=== PATIENT | female | born 1935 | race Caucasian/White ===

== ENCOUNTER 2019-10-18 19:19 | Emergency (ER) | payer MEDICARE, MEDICAID ==
--- NOTE | 2019-10-18 20:02 | EDM.PDOC ---
ED HPI GENERAL MEDICAL PROBLEM - General Chief Complaint: Genitourinary Problem Stated Complaint: UTI Time Seen by Provider: 10/18/19 19:45 Source of Information: Reports: Patient, Family History Limitations: Reports: Other (Patient has some dementia and confusion) - History of Present Illness INITIAL COMMENTS - FREE TEXT/NARRATIVE: 84-year-old female with dementia, is having a bad day today because she is "off ", more confused than usual and her family think she is going to the bathroom more often. The patient herself denies any symptoms. She has no fevers or chills, pain, nausea or vomiting or recent trauma. They mainly just want her checked for a UTI. 2 weeks ago she started paroxetine for depression. Onset: Unknown/Unsure (Symptoms for at least the last 24 hours) Associated Symptoms: Reports: Confusion. Denies: Chest Pain, Fever/Chills, Loss of Appetite, Nausea/Vomiting, Shortness of Breath - Related Data Allergies Allergy/AdvReac Type Severity Reaction Status Date / Time lisinopril Allergy Cannot Verified 03/29/14 13:42 Remember Penicillins Allergy Cannot Verified 03/29/14 13:42 Remember Home Meds: Home Meds Losartan [Cozaar] 100 mg PO DAILY 03/29/14 [History] Famotidine 20 mg PO DAILY 10/18/19 [History] Multivitamin [Multiple Vitamins] 1 each PO DAILY 10/18/19 [History] PARoxetine [Paxil] 20 mg PO DAILY 10/18/19 [History] buPROPion [buPROPion XL] 150 mg PO BEDTIME 10/18/19 [History] Past Medical History HEENT History: Reports: Impaired Vision Cardiovascular History: Reports: High Cholesterol, Hypertension Respiratory History: Reports: Asthma Gastrointestinal History: Reports: GERD [employer]ER History: Reports: Musculoskeletal History: Reports: Arthritis, Fracture Other Musculoskeletal History: broken collar bone Psychiatric History: Reports: Dementia Oncologic (Cancer) History: Reports: Brain Other Oncologic History: benign brain tumor - Infectious Disease History Infectious Disease History: Reports: Chicken Pox, Measles, Mumps - Past Surgical History Female Surgical History: Reports: Hysterectomy Musculoskeletal Surgical History: Reports: Arthroscopic Knee Social & Family History - Family History Family Medical History: Noncontributory - Tobacco Use Smoking Status *Q: Former Smoker Used Tobacco, but Quit: Yes Month/Year Tobacco Last Used: 2005 - Caffeine Use Caffeine Use: Reports: Coffee - Recreational Drug Use Recreational Drug Use: No ED ROS GENERAL - Review of Systems Review Of Systems: See Below Constitutional: Denies: Fever, Chills Respiratory: Denies: Shortness of Breath Cardiovascular: Denies: Chest Pain GI/Abdominal: Reports: Nausea, Vomiting (Patient claims she has had some nausea and vomiting over the past several days but none currently). Denies: Abdominal Pain : Reports: Frequency. Denies: Dysuria, Urgency Skin: Reports: No Symptoms Neurological: Reports: Confusion. Denies: Headache Psychiatric: Reports: No Symptoms ED EXAM, GENERAL - Physical Exam Exam: See Below Exam Limited By: No Limitations General Appearance: Alert, No Apparent Distress Eye Exam: Bilateral Eye: EOMI, Normal Inspection (No jaundice) Head: Atraumatic Neck: Supple, Non-Tender Respiratory/Chest: Lungs Clear Cardiovascular: Regular Rate, Rhythm GI/Abdominal: Soft, Non-Tender Back Exam: No: CVA Tenderness (R), CVA Tenderness (L) Neurological: Alert, Confused (Mildly confused, according to family not much different than her baseline) Skin Exam: Warm, Dry Course - Vital Signs Last Recorded V/S: Last Vital Signs Temp 97.3 F 10/18/19 19:33 Pulse 98 10/18/19 19:33 Resp 14 10/18/19 19:33 BP 150/90 H 10/18/19 19:33 Pulse Ox 97 10/18/19 19:33 - Orders/Labs/Meds Orders: Active Orders 24 hr Category Date Time Status CULTURE URINE [RM] Stat Lab 10/18/19 20:27 Received Labs: Laboratory Tests 10/18/19 Range/Units 19:58 Urine Color Yellow (YELLOW) Urine Appearance Slightly cloudy A (CLEAR) Urine pH 5.0 (5.0-8.0) Ur Specific [place] 1.025 (1.008-1.030) Urine Protein 30 H (NEGATIVE) mg/dL Urine Glucose (UA) Negative (NEGATIVE) mg/dL Urine Ketones 15 H (NEGATIVE) mg/dL Urine Occult Blood Negative (NEGATIVE) Urine Nitrite Negative (NEGATIVE) Urine Bilirubin Small H (NEGATIVE) Urine Urobilinogen 1.0 (0.2-1.0) EU/dL Ur Leukocyte Esterase Negative (NEGATIVE) Urine RBC 0-5 (0-5) Urine WBC 0-5 (0-5) Ur Epithelial Cells Few Amorphous Sediment Not seen Urine Bacteria Many Urine Mucus Moderate - Re-Assessments/Exams Free Text/Narrative Re-Assessment/Exam: 10/18/19 20:02 UA was obtained by quick catheterization. 10/18/19 20:16 UA showed many bacteria, but not a significant inflammatory component with white cells or leukocyte on dipstick. No RBCs. A culture was initiated and the patient will be placed on Macrodantin 100 mg twice daily for at least the next 5 days. She can recheck anytime if worsening such as fever or increased symptoms. Departure - Departure Time of Disposition: 20:21 Disposition: Home, Self-Care 01 Clinical Impression: Confusion UTI (urinary tract infection) Qualifiers: Urinary tract infection type: acute cystitis Hematuria presence: without hematuria Qualified Code(s): N30.00 - Acute cystitis without hematuria - Discharge Information Instructions: Urinary Tract Infection, Adult, [id number] Referrals: Linnea Fajardo PA [Primary Care Provider] - Forms: ED Department Discharge Care Plan Goals: Continue your current medications, and take Macrodantin twice daily for at least 5 days. We will inform you of culture results if changes are needed. Consider rechecking in 3 to 4 days if not improving satisfactorily, or return sooner if worsening such as fever, pain, or increased confusion. - My Orders Last 24 Hours: My Active Orders 10/18/19 20:27 CULTURE URINE [RM] Stat - Assessment/Plan Last 24 Hours: My Active Orders 10/18/19 20:27 CULTURE URINE [RM] Stat
== END 2019-10-18 20:25 | disposition home or self-care (01) ==
LOC: JP.ED 19:19
DX: R41.0 Disorientation, unspecified (principal); N39.0 Urinary tract infection, site not specified; I10 Essential (primary) hypertension; J45.909 Unspecified asthma, uncomplicated; Z88.0 Allergy status to penicillin; Z88.8 Allergy status to other drugs, medicaments and biological substances; Z87.891 Personal history of nicotine dependence
CPT/HCPCS: 81001; 87086; 99283

== ENCOUNTER 2020-01-11 03:17 | Emergency (ER) | payer MEDICARE, MEDICAID ==
--- NOTE | 2020-01-11 03:53 | EDM.PDOC ---
ED HPI GENERAL MEDICAL PROBLEM - General Chief Complaint: Genitourinary Problem Stated Complaint: UTI Time Seen by Provider: 01/11/20 03:39 Source of Information: Reports: Family History Limitations: Reports: No Limitations - History of Present Illness INITIAL COMMENTS - FREE TEXT/NARRATIVE: Patient brought by son who found her pacing in the house tonight and calling out the name of a relative. When she was last like this, she had a UTI. Son was concerned the same thing is happening again. Onset: Today Duration: Hour(s): (2) Quality: Reports: Ache Severity: Mild Improves with: Reports: None Worsens with: Reports: None Associated Symptoms: Reports: Confusion - Related Data Allergies Allergy/AdvReac Type Severity Reaction Status Date / Time lisinopril Allergy Cannot Verified 01/11/20 03:42 Remember Penicillins Allergy Cannot Verified 01/11/20 03:42 Remember Home Meds: Home Meds Losartan [Cozaar] 100 mg PO DAILY 03/29/14 [History] Famotidine 20 mg PO DAILY 10/18/19 [History] Multivitamin [Multiple Vitamins] 1 each PO DAILY 10/18/19 [History] PARoxetine [Paxil] 20 mg PO DAILY 10/18/19 [History] buPROPion [buPROPion XL] 150 mg PO BEDTIME 10/18/19 [History] Past Medical History HEENT History: Reports: Impaired Vision Cardiovascular History: Reports: High Cholesterol, Hypertension Respiratory History: Reports: Asthma Gastrointestinal History: Reports: GERD [employer]CH[employer]ICIAN History: Reports: Musculoskeletal History: Reports: Arthritis, Fracture Other Musculoskeletal History: broken collar bone Psychiatric History: Reports: Dementia Oncologic (Cancer) History: Reports: Brain Other Oncologic History: benign brain tumor - Infectious Disease History Infectious Disease History: Reports: Chicken Pox, Measles, Mumps - Past Surgical History Female Surgical History: Reports: Hysterectomy Musculoskeletal Surgical History: Reports: Arthroscopic Knee Social & Family History - Family History Family Medical History: Noncontributory - Caffeine Use Caffeine Use: Reports: Coffee ED ROS GENERAL - Review of Systems Review Of Systems: Unable To Obtain Reason Not Obtained: Dementia status. ED EXAM, RENAL/ - Physical Exam Exam: See Below Exam Limited By: No Limitations General Appearance: No Apparent Distress Respiratory/Chest: Lungs Clear Cardiovascular: Regular Rate, Rhythm GI/Abdominal: Soft, Non-Tender Course - Vital Signs Last Recorded V/S: Last Vital Signs Temp 37.1 C 01/11/20 03:46 Pulse 93 01/11/20 03:46 Resp 14 01/11/20 03:46 BP 147/85 H 01/11/20 03:46 Pulse Ox 96 01/11/20 03:46 - Orders/Labs/Meds Labs: Laboratory Tests 01/11/20 Range/Units 04:03 Urine Color Yellow (YELLOW) Urine Appearance Cloudy A (CLEAR) Urine pH 5.5 (5.0-8.0) Ur Specific [place] >= 1.030 (1.008-1.030) Urine Protein Trace H (NEGATIVE) mg/dL Urine Glucose (UA) Negative (NEGATIVE) mg/dL Urine Ketones Negative (NEGATIVE) mg/dL Urine Occult Blood Negative (NEGATIVE) Urine Nitrite Negative (NEGATIVE) Urine Bilirubin Negative (NEGATIVE) Urine Urobilinogen 1.0 (0.2-1.0) EU/dL Ur Leukocyte Esterase Negative (NEGATIVE) - Re-Assessments/Exams Free Text/Narrative Re-Assessment/Exam: 01/11/20 05:09 Urine testing eventually finalized which shows no evidence of infection. I think her son was witnessing increased confusion due to a sundowning effect. Patient remained in good condition and had no further questions. I reviewed my exam with him which demonstrated clear lungs even though the patient does have intermittent coughing. Departure - Departure Time of Disposition: 04:28 Disposition: Home, Self-Care 01 Condition: Good Clinical Impression: Confusion - Discharge Information *PRESCRIPTION DRUG MONITORING PROGRAM REVIEWED*: Not Applicable *COPY OF PRESCRIPTION DRUG MONITORING REPORT IN PATIENT PAZ: Not Applicable Instructions: Confusion, Dementia Caregiver Guide Referrals: PCP,None [Primary Care Provider] - Forms: ED Department Discharge Additional Instructions: Continue current medications and cares. Keep scheduled appointments. Sepsis Event Note - Focused Exam Vital Signs: Vital Signs Temp Pulse Resp BP Pulse Ox 01/11/20 03:46 37.1 C 93 14 147/85 H 96 Date Exam was Performed: 01/11/20 Time Exam was Performed: 05:07
== END 2020-01-11 04:35 | disposition home or self-care (01) ==
LOC: JP.ED 03:17
DX: R41.0 Disorientation, unspecified (principal); I10 Essential (primary) hypertension; E78.00 Pure hypercholesterolemia, unspecified; K21.9 Gastro-esophageal reflux disease without esophagitis; Z79.899 Other long term (current) drug therapy; Z88.0 Allergy status to penicillin; Z88.8 Allergy status to other drugs, medicaments and biological substances
CPT/HCPCS: 81003; 99282; 99284

== ENCOUNTER 2024-01-05 18:34 | Emergency (ER) | payer MEDICARE, MEDICAID ==
[2024-01-05 20:10] LABS: BASOPHILS PERCENT AUTO 0.3 % (0.1-1.3); EOSINOPHILS ABSOLUTE AUTO 0.17 K/uL (0.00-0.40); EOSINOPHILS PERCENT AUTO 2.9 % (0.0-5.4); HEMOGLOBIN 11.9 g/dL (11.2-15.5); IMMATURE GRAN PERCENT AUTO 0.3 % (0.0-0.7); LYMPHOCYTES ABSOLUTE AUTO 1.17 K/uL (0.8-3.3); LYMPHOCYTES PERCENT AUTO 20.3 % (11.4-47.7); MEAN CORPUSCULAR HEMOGLOBIN 30.1 pg (31.6-35.5); MEAN CORPUSCULAR VOLUME 88.6 fL (81.4-99.0); MONOCYTES PERCENT AUTO 8.7 % (3.3-12.6); NEUTROPHILS ABSOLUTE AUTO 3.89 K/uL (1.0-7.6); NEUTROPHILS PERCENT AUTO 67.5 % (40.0-78.1); PLATELET COUNT,PLT 193 K/uL (130-375); RED BLOOD CELL COUNT 3.95 M/uL (3.77-5.24); WHITE BLOOD CELL COUNT,WBC 5.8 K/uL (3.2-11.0)
[2024-01-05 20:11] LABS: BASOPHILS ABSOLUTE AUTO 0.02 K/uL (0.00-0.10); IMMATURE GRAN ABSOLUTE AUTO 0.02 K/uL (0.00-0.23)
[2024-01-05] MEDS: Sodium Chloride 0.9% 10 ML Syringe FLUSH PRN (20:27)
[2024-01-05 20:29] LABS: ALANINE AMINOTRANSFERASE,ALT 17 U/L (12-78); ALBUMIN 3.3 g/dL (3.4-5.0); ALKALINE PHOSPHATASE 65 U/L (46-116); ASPARTATE AMNIOTRANSFERASE,AST 15 U/L (15-37); BILIRUBIN TOTAL 0.5 mg/dL (0.2-1.0); BLOOD UREA NITROGEN,BUN 11 mg/dL (7-18); CALCIUM 9.1 mg/dL (8.5-10.1); CARBON DIOXIDE,CO2 28 mmol/L (21-32); CHLORIDE,CL 105 mmol/L (100-108); CREATININE 1.2 mg/dL (0.6-1.0); EST CRCL DRUG DOSING (CG) 23.72 mL/min; ESTIMATED GFR 44 mL/min (>60); GLUCOSE RANDOM 102 mg/dL (74-106); POTASSIUM,K 3.2 mmol/L (3.6-5.2); PROTEIN TOTAL,TP 6.7 g/dL (6.4-8.2); SODIUM,NA 143 mmol/L (140-148)
[2024-01-05 20:31] LABS: ANION GAP 13.2 mmol/L (5.0-14.0)
[2024-01-05 20:34] LABS: BILIRUBIN,URINE NEGATIVE (NEGATIVE); COLOR,URINE YELLOW (YELLOW); GLUCOSE,URINE NEGATIVE (NEGATIVE); KETONES,URINE NEGATIVE (NEGATIVE); LEUKOCYTE ESTERASE,URINE NEGATIVE (NEGATIVE); NITRITE,URINE NEGATIVE (NEGATIVE); OCCULT BLOOD,URINE NEGATIVE (NEGATIVE); PROTEIN,URINE NEGATIVE (NEGATIVE)
[2024-01-05 20:39] LABS: AMORPHOUS SEDIMENT,URINE NOT SEEN; APPEARANCE,URINE SLIGHTLY CLOUDY (CLEAR); BACTERIA,URINE FEW; EPITHELIAL CELLS,URINE MODERATE; MUCUS,URINE MANY; RBC,URINE 0-5 (0-5); WBC,URINE 0-5 (0-5)
[2024-01-05 20:48] LABS: CORONAVIRUS COVID-19 NAA NEGATIVE (NEGATIVE); INFLUENZA A NAA NEGATIVE (NEGATIVE); INFLUENZA B NAA NEGATIVE (NEGATIVE); RESPIRATORY SYNCYTIAL VIR NAA NEGATIVE (NEGATIVE)
[2024-01-05] MEDS: Sodium Chloride 0.9% 1,000 ML IV SCH (21:05)
[2024-01-05] MEDS: Potassium Chloride 20 MEQ Tab.ER PO ONE (21:35)
== END 2024-01-05 22:36 | disposition home or self-care (01) ==
LOC: JP.ED 18:34
DX: E86.0 Dehydration (principal); E87.6 Hypokalemia; I10 Essential (primary) hypertension; Z88.0 Allergy status to penicillin; Z88.8 Allergy status to other drugs, medicaments and biological substances; Z79.899 Other long term (current) drug therapy; Z90.710 Acquired absence of both cervix and uterus
CPT/HCPCS: 0241U; 36415; 80053; 81001; 85025; 96360; 99284; A9270; J3490; J7030

== ENCOUNTER 2024-03-29 10:38 | Emergency (ER) | payer MEDICARE, MEDICAID ==
[2024-03-29 12:32] LABS: EOSINOPHILS PERCENT AUTO 0.1 % (0.0-5.4); HEMATOCRIT 31.2 % (34.3-46.0); HEMOGLOBIN 10.5 g/dL (11.2-15.5); IMMATURE GRAN ABSOLUTE AUTO 0.04 K/uL (0.00-0.23); IMMATURE GRAN PERCENT AUTO 0.5 % (0.0-0.7); LYMPHOCYTES ABSOLUTE AUTO 0.76 K/uL (0.8-3.3); LYMPHOCYTES PERCENT AUTO 8.9 % (11.4-47.7); MEAN CORPUSCULAR HEMOGLOBIN 30.5 pg (31.6-35.5); MEAN CORPUSCULAR HGB CONC 33.7 g/dL (31.6-35.5); MEAN CORPUSCULAR VOLUME 90.7 fL (81.4-99.0); MONOCYTES ABSOLUTE AUTO 0.74 K/uL (0.20-0.90); MONOCYTES PERCENT AUTO 8.7 % (3.3-12.6); NEUTROPHILS ABSOLUTE AUTO 6.97 K/uL (1.0-7.6); NEUTROPHILS PERCENT AUTO 81.8 % (40.0-78.1); PLATELET COUNT,PLT 189 K/uL (130-375); RED BLOOD CELL COUNT 3.44 M/uL (3.77-5.24); WHITE BLOOD CELL COUNT,WBC 8.5 K/uL (3.2-11.0)
[2024-03-29 12:33] LABS: EOSINOPHILS ABSOLUTE AUTO 0.01 K/uL (0.00-0.40)
[2024-03-29] MEDS: Sodium Chloride 0.9% 1,000 ML IV SCH (12:34)
[2024-03-29 12:52] LABS: A/G RATIO 0.8 (1.2-2.2); ALANINE AMINOTRANSFERASE,ALT 22 U/L (12-78); ALBUMIN 2.8 g/dL (3.4-5.0); ALKALINE PHOSPHATASE 62 U/L (46-116); ASPARTATE AMNIOTRANSFERASE,AST 13 U/L (15-37); BILIRUBIN TOTAL 0.7 mg/dL (0.2-1.0); BLOOD UREA NITROGEN,BUN 27 mg/dL (7-18); C-REACTIVE PROTEIN 3.33 mg/dL (<0.50); CALCIUM 9.5 mg/dL (8.5-10.1); CARBON DIOXIDE,CO2 27 mmol/L (21-32); CHLORIDE,CL 108 mmol/L (100-108); CREATININE 1.1 mg/dL (0.6-1.0); EST CRCL DRUG DOSING (CG) 25.88 mL/min; ESTIMATED GFR 49 mL/min (>60); GLUCOSE RANDOM 94 mg/dL (74-106); POTASSIUM,K 3.5 mmol/L (3.6-5.2); PROTEIN TOTAL,TP 6.2 g/dL (6.4-8.2); SODIUM,NA 142 mmol/L (140-148)
[2024-03-29 12:53] LABS: ANION GAP 10.5 mmol/L (5.0-14.0)
[2024-03-29 14:19] LABS: APPEARANCE,URINE CLEAR (CLEAR); BILIRUBIN,URINE NEGATIVE (NEGATIVE); COLOR,URINE YELLOW (YELLOW); GLUCOSE,URINE NEGATIVE (NEGATIVE); KETONES,URINE NEGATIVE (NEGATIVE); LEUKOCYTE ESTERASE,URINE NEGATIVE (NEGATIVE); NITRITE,URINE POSITIVE (NEGATIVE); OCCULT BLOOD,URINE NEGATIVE (NEGATIVE); PH,URINE 5.5 (5.0-8.0); PROTEIN,URINE NEGATIVE (NEGATIVE)
[2024-03-29 14:25] LABS: AMORPHOUS SEDIMENT,URINE NOT SEEN; BACTERIA,URINE MANY; EPITHELIAL CELLS,URINE FEW; MUCUS,URINE FEW; RBC,URINE 0-5 (0-5)
[2024-03-29] MEDS: Losartan 50 MG Tab PO ONE (14:28)
== END 2024-03-29 15:21 | disposition home or self-care (01) ==
LOC: JP.ED 10:38
DX: R41.0 Disorientation, unspecified (principal); N39.0 Urinary tract infection, site not specified; B37.9 Candidiasis, unspecified; I10 Essential (primary) hypertension; Z88.8 Allergy status to other drugs, medicaments and biological substances; Z88.0 Allergy status to penicillin; Z79.899 Other long term (current) drug therapy; Z90.710 Acquired absence of both cervix and uterus; Z87.891 Personal history of nicotine dependence
CPT/HCPCS: 36415; 71045; 80053; 81001; 85025; 86140; 87086; 87088; 87186; 96360; 99285; A9270; J7030

== ENCOUNTER 2024-07-14 14:59 | Emergency (ER) | payer MEDICARE, MEDICAID ==
[2024-07-14] MEDS ORDERED: Sodium Chloride 0.9% 10 ML Syringe FLUSH PRN (15:36)
[2024-07-14 16:00] LABS: BASOPHILS PERCENT AUTO 0.5 % (0.1-1.3); EOSINOPHILS ABSOLUTE AUTO 0.06 K/uL (0.00-0.40); EOSINOPHILS PERCENT AUTO 1.5 % (0.0-5.4); HEMATOCRIT 30.9 % (34.3-46.0); HEMOGLOBIN 10.8 g/dL (11.2-15.5); IMMATURE GRAN PERCENT AUTO 0.2 % (0.0-0.7); LYMPHOCYTES ABSOLUTE AUTO 0.78 K/uL (0.8-3.3); MEAN CORPUSCULAR HEMOGLOBIN 30.7 pg (31.6-35.5); MEAN CORPUSCULAR VOLUME 87.8 fL (81.4-99.0); MONOCYTES ABSOLUTE AUTO 0.43 K/uL (0.20-0.90); MONOCYTES PERCENT AUTO 10.5 % (3.3-12.6); NEUTROPHILS PERCENT AUTO 68.3 % (40.0-78.1); PLATELET COUNT,PLT 143 K/uL (130-375); RED BLOOD CELL COUNT 3.52 M/uL (3.77-5.24); WHITE BLOOD CELL COUNT,WBC 4.1 K/uL (3.2-11.0)
[2024-07-14 16:01] LABS: BASOPHILS ABSOLUTE AUTO 0.02 K/uL (0.00-0.10); IMMATURE GRAN ABSOLUTE AUTO 0.01 K/uL (0.00-0.23)
[2024-07-14 16:03] LABS: APPEARANCE,URINE CLEAR (CLEAR); BILIRUBIN,URINE NEGATIVE (NEGATIVE); COLOR,URINE YELLOW (YELLOW); GLUCOSE,URINE NEGATIVE (NEGATIVE); KETONES,URINE NEGATIVE (NEGATIVE); LEUKOCYTE ESTERASE,URINE NEGATIVE (NEGATIVE); NITRITE,URINE NEGATIVE (NEGATIVE); OCCULT BLOOD,URINE TRACE-INTACT (NEGATIVE); PROTEIN,URINE NEGATIVE (NEGATIVE)
[2024-07-14 16:09] LABS: AMORPHOUS SEDIMENT,URINE NOT SEEN; BACTERIA,URINE FEW; EPITHELIAL CELLS,URINE FEW; MUCUS,URINE NOT SEEN; RBC,URINE 0-5 (0-5); WBC,URINE 0-5 (0-5)
[2024-07-14] MEDS: Sodium Chloride 0.9% 1,000 ML IV ONE (16:13)
[2024-07-14 16:17] LABS: ANION GAP 13.7 mmol/L (5.0-14.0); CALCIUM 9.5 mg/dL (8.5-10.1); CREATININE 1.1 mg/dL (0.6-1.0); EST CRCL DRUG DOSING (CG) 28.5 mL/min; POTASSIUM,K 3.7 mmol/L (3.6-5.2)
== END 2024-07-14 18:09 | disposition home or self-care (01) ==
LOC: JP.ED 14:59
DX: E86.0 Dehydration (principal); R41.0 Disorientation, unspecified; I10 Essential (primary) hypertension; Z86.73 Personal history of transient ischemic attack (TIA), and cerebral infarction without residual deficits; Z79.899 Other long term (current) drug therapy; Z88.0 Allergy status to penicillin; Z88.8 Allergy status to other drugs, medicaments and biological substances
CPT/HCPCS: 36415; 71045; 80048; 81001; 83605; 84145; 85025; 96360; 96361; 99285; J7030; 99284

== ENCOUNTER 2024-07-20 10:39 | Emergency (ER) | payer MEDICARE, MEDICAID ==
[2024-07-20] MEDS ORDERED: Sodium Chloride 0.9% 10 ML Syringe FLUSH PRN (11:32)
[2024-07-20] MEDS: Lactated Ringers 1,000 ML IV ONE (11:48)
== END 2024-07-20 13:12 | disposition home or self-care (01) ==
LOC: JP.ED 10:39
DX: E86.0 Dehydration (principal); I10 Essential (primary) hypertension; E78.00 Pure hypercholesterolemia, unspecified; Z88.0 Allergy status to penicillin; Z88.8 Allergy status to other drugs, medicaments and biological substances; Z79.899 Other long term (current) drug therapy; Z86.73 Personal history of transient ischemic attack (TIA), and cerebral infarction without residual deficits; Z87.891 Personal history of nicotine dependence
CPT/HCPCS: 96360; 99283; J7120

== ENCOUNTER 2024-08-24 15:36 | Emergency (ER) | payer MEDICARE, MEDICAID | END 2024-08-24 17:03 | disposition home or self-care (01) | LOC: JP.ED 15:36 | DX: M54.16 Radiculopathy, lumbar region (principal); I10 Essential (primary) hypertension; Z90.710 Acquired absence of both cervix and uterus; Z79.899 Other long term (current) drug therapy; Z88.0 Allergy status to penicillin; Z88.5 Allergy status to narcotic agent; Z88.8 Allergy status to other drugs, medicaments and biological substances | CPT/HCPCS: 99283; 99284 ==

== ENCOUNTER 2024-09-04 14:51 | Inpatient (IN) | payer MEDICARE, MEDICAID ==
[2024-09-04] MEDS ORDERED: Sodium Chloride 0.9% 1,000 ML IV ONE (15:16)
[2024-09-04 15:33] LABS: BASOPHILS PERCENT AUTO 0.1 % (0.1-1.3); EOSINOPHILS ABSOLUTE AUTO 0.09 K/uL (0.00-0.40); EOSINOPHILS PERCENT AUTO 1.1 % (0.0-5.4); HEMATOCRIT 28.5 % (34.3-46.0); HEMOGLOBIN 9.6 g/dL (11.2-15.5); IMMATURE GRAN PERCENT AUTO 0.2 % (0.0-0.7); LYMPHOCYTES ABSOLUTE AUTO 0.69 K/uL (0.8-3.3); LYMPHOCYTES PERCENT AUTO 8.4 % (11.4-47.7); MEAN CORPUSCULAR HEMOGLOBIN 31.5 pg (31.6-35.5); MEAN CORPUSCULAR HGB CONC 33.7 g/dL (31.6-35.5); MEAN CORPUSCULAR VOLUME 93.4 fL (81.4-99.0); MONOCYTES ABSOLUTE AUTO 0.45 K/uL (0.20-0.90); MONOCYTES PERCENT AUTO 5.4 % (3.3-12.6); NEUTROPHILS PERCENT AUTO 84.8 % (40.0-78.1); PLATELET COUNT,PLT 181 K/uL (130-375); RED BLOOD CELL COUNT 3.05 M/uL (3.77-5.24); WHITE BLOOD CELL COUNT,WBC 8.3 K/uL (3.2-11.0)
[2024-09-04 15:35] LABS: BASOPHILS ABSOLUTE AUTO 0.01 K/uL (0.00-0.10); IMMATURE GRAN ABSOLUTE AUTO 0.02 K/uL (0.00-0.23)
[2024-09-04 15:54] LABS: A/G RATIO 0.9 (1.2-2.2); ALANINE AMINOTRANSFERASE,ALT 31 U/L (12-78); ALBUMIN 2.5 g/dL (3.4-5.0); ALKALINE PHOSPHATASE 108 U/L (46-116); ANION GAP 13.2 mmol/L (5.0-14.0); ASPARTATE AMNIOTRANSFERASE,AST 19 U/L (15-37); BILIRUBIN TOTAL 0.8 mg/dL (0.2-1.0); BLOOD UREA NITROGEN,BUN 28 mg/dL (7-18); C-REACTIVE PROTEIN 2.01 mg/dL (<0.50); CALCIUM 8.7 mg/dL (8.5-10.1); CARBON DIOXIDE,CO2 25 mmol/L (21-32); CHLORIDE,CL 109 mmol/L (100-108); CREATININE 0.8 mg/dL (0.6-1.0); EST CRCL DRUG DOSING (CG) 35.59 mL/min; ESTIMATED GFR 71 mL/min (>60); GLUCOSE RANDOM 91 mg/dL (74-106); POTASSIUM,K 3.2 mmol/L (3.6-5.2); PROTEIN TOTAL,TP 5.4 g/dL (6.4-8.2); SODIUM,NA 144 mmol/L (140-148)
[2024-09-04 15:56] LABS: APPEARANCE,URINE CLEAR (CLEAR); BILIRUBIN,URINE SMALL (NEGATIVE); COLOR,URINE YELLOW (YELLOW); GLUCOSE,URINE NEGATIVE (NEGATIVE); KETONES,URINE NEGATIVE (NEGATIVE); LEUKOCYTE ESTERASE,URINE NEGATIVE (NEGATIVE); NITRITE,URINE NEGATIVE (NEGATIVE); OCCULT BLOOD,URINE TRACE-INTACT (NEGATIVE); PH,URINE 5.5 (5.0-8.0); PROTEIN,URINE TRACE mg/dL (NEGATIVE); UROBILINOGEN,URINE 0.2 EU/dL (0.2-1.0)
[2024-09-04 15:57] LABS: LACTIC ACID 0.5 mmol/L (0.4-2.0)
[2024-09-04 16:00] LABS: EPITHELIAL CELLS,URINE FEW; RBC,URINE 0-5 (0-5); WBC,URINE NOT SEEN (0-5)
[2024-09-04 16:01] LABS: AMORPHOUS SEDIMENT,URINE FEW; BACTERIA,URINE RARE; MUCUS,URINE NOT SEEN
[2024-09-04] MEDS: Sodium Chloride 0.9% 500 ML IV ONE ×2 (16:12)
[2024-09-04 17:02] LABS: CORONAVIRUS COVID-19 NAA NEGATIVE (NEGATIVE); INFLUENZA A NAA NEGATIVE (NEGATIVE); INFLUENZA B NAA NEGATIVE (NEGATIVE); RESPIRATORY SYNCYTIAL VIR NAA NEGATIVE (NEGATIVE)
[2024-09-04] MEDS: Levofloxacin/Dextrose 5%-Water 750 MG in Premix Bag 1 BAG IV ONE (17:02)
[2024-09-04] MEDS: Potassium Chloride 10 MEQ in Premix Bag 1 BAG IV ONE (17:12)
[2024-09-04] MEDS: fentaNYL 50 MCG/ML SDV IVPUSH ONE ×2 (17:23→17:35)
[2024-09-04] MEDS ORDERED: Polyethylene Glycol 3350 Powder 17 GM Packet PO PRN (17:39)
[2024-09-04] MEDS ORDERED: Sodium Chloride 0.9% 10 ML Syringe FLUSH PRN (17:39)
[2024-09-04] MEDS ORDERED: Ondansetron 4 MG/2 ML SDV IV PRN (17:39)
[2024-09-04] MEDS: Haloperidol Lactate 5 MG/ML SDV IVPUSH ONE (18:01)
[2024-09-04] MEDS: Haloperidol Lactate 5 MG/ML SDV IVPUSH PRN (18:25)
[2024-09-04] MEDS: Sodium Chloride 0.9% 1,000 ML IV SCH (18:26)
[2024-09-04] MEDS: Potassium Chloride 10 MEQ in Premix Bag 1 BAG IV SCH (19:14)
[2024-09-04] MEDS: Enoxaparin 40 MG/0.4 ML Syringe SUBCUT SCH (19:22)
[2024-09-04] MEDS: Haloperidol Lactate 5 MG/ML SDV IVPUSH STA (20:00)
[2024-09-04] MEDS: Melatonin 3 MG Tab PO SCH (21:36)
[2024-09-04] MEDS: Haloperidol 1 MG Tab PO SCH (21:36)
[2024-09-04] MEDS: Oxybutynin 5 MG Tab PO SCH (21:37)
[2024-09-04] MEDS: Acetaminophen 325 MG Tab PO PRN (23:42)
[2024-09-05] MEDS: QUEtiapine 25 MG Tab PO ONE (04:03)
[2024-09-05] MEDS: Nystatin Topical Powder 15 GM Bottle TOP SCH ×2 (04:04→13:15)
[2024-09-05 05:14] LABS: HEMATOCRIT 26.4 % (34.3-46.0); HEMOGLOBIN 8.9 g/dL (11.2-15.5); MEAN CORPUSCULAR HEMOGLOBIN 31.7 pg (31.6-35.5); MEAN CORPUSCULAR HGB CONC 33.7 g/dL (31.6-35.5); RED BLOOD CELL COUNT 2.81 M/uL (3.77-5.24); WHITE BLOOD CELL COUNT,WBC 10.7 K/uL (3.2-11.0)
[2024-09-05 05:30] LABS: CALCIUM 8.8 mg/dL (8.5-10.1); EST CRCL DRUG DOSING (CG) 28.47 mL/min; MAGNESIUM 1.5 mg/dL (1.8-2.4); POTASSIUM,K 4.8 mmol/L (3.6-5.2)
[2024-09-05 05:44] LABS: ANION GAP 14.8 mmol/L (5.0-14.0)
[2024-09-05] MEDS: Acetaminophen/HYDROcodone 325-5 MG Tab PO ONE (06:03)
[2024-09-05] MEDS: Magnesium Sulfate/Water Premix 2 GM in Premix Bag 1 BAG IV SCH (08:31)
[2024-09-05] MEDS: Magnesium Oxide 400 MG Tab PO SCH (08:55)
[2024-09-05] MEDS ORDERED: Non-Formulary Medication 1 Each (Valsartan [Valsartan] 80 MG Tablet) PO SCH (09:00)
[2024-09-05] MEDS: Acetaminophen/HYDROcodone 325-5 MG Tab PO PRN (10:25)
[2024-09-05] MEDS ORDERED: Naloxone 0.4 MG/ML SDV IVPUSH PRN (11:21)
[2024-09-05] MEDS: fentaNYL 50 MCG/ML SDV IVPUSH PRN ×2 (11:36→18:06)
[2024-09-05] MEDS: Losartan 50 MG Tab PO SCH (13:16)
[2024-09-05] MEDS: FLUoxetine 20 MG Cap PO SCH (13:17)
[2024-09-05] MEDS: fentaNYL 50 MCG/ML SDV IM ONE (14:00)
[2024-09-05] MEDS: fentaNYL 50 MCG/ML SDV IVPUSH ONE (14:00)
[2024-09-05] MEDS: Potassium Chloride 20 MEQ Tab.ER PO ONE (15:40)
[2024-09-05] MEDS: Enoxaparin 30 MG/0.3 ML Syringe SUBCUT SCH (18:06)
[2024-09-06] MEDS: Sodium Chloride 0.9% 1,000 ML IV SCH (04:48)
[2024-09-06 05:47] LABS: ANION GAP 13.8 mmol/L (5.0-14.0); CALCIUM 8.7 mg/dL (8.5-10.1); EST CRCL DRUG DOSING (CG) 28.47 mL/min; MAGNESIUM 2.7 mg/dL (1.8-2.4); POTASSIUM,K 3.8 mmol/L (3.6-5.2)
[2024-09-06] MEDS: Levofloxacin/Dextrose 5%-Water 750 MG in Premix Bag 1 BAG IV SCH (16:05)
[2024-09-07 06:06] LABS: ANION GAP 15.1 mmol/L (5.0-14.0); CALCIUM 8.8 mg/dL (8.5-10.1); EST CRCL DRUG DOSING (CG) 28.47 mL/min; POTASSIUM,K 4.1 mmol/L (3.6-5.2)
[2024-09-07] MEDS: cefTRIAXone 1 GM in Sodium Chloride 0.9% 50 ML IV SCH (16:01)
[2024-09-07] MEDS: Doxycycline 100 MG in Sodium Chloride 0.9% 100 ML IV SCH (17:07)
[2024-09-07] MEDS: Saliva Substitute Oral Spray 120 ML Bottle MUCMEM PRN (18:44)
[2024-09-07] MEDS: Haloperidol 1 MG Tab PO SCH (20:05)
[2024-09-07] MEDS: diphenhydrAMINE 50 MG/ML SDV IVPUSH ONE (21:47)
[2024-09-08] MEDS: LORazepam ORAL Concentrate 1MG/0.5ML U/D SL ONE (03:09)
[2024-09-08] MEDS: Albuterol 0.083% 2.5 MG/3 ML Neb Soln NEB PRN (03:55)
[2024-09-08 05:00] LABS: HEMATOCRIT 25.9 % (34.3-46.0); HEMOGLOBIN 8.6 g/dL (11.2-15.5); MEAN CORPUSCULAR HEMOGLOBIN 31.9 pg (31.6-35.5); MEAN CORPUSCULAR HGB CONC 33.2 g/dL (31.6-35.5); MEAN CORPUSCULAR VOLUME 95.9 fL (81.4-99.0); RED BLOOD CELL COUNT 2.7 M/uL (3.77-5.24); WHITE BLOOD CELL COUNT,WBC 11.5 K/uL (3.2-11.0)
[2024-09-08] MEDS: Morphine 10 MG/0.5 ML Oral Syringe PO PRN ×2 (05:00→09:14)
[2024-09-08 05:13] LABS: CALCIUM 8.8 mg/dL (8.5-10.1); CREATININE 0.8 mg/dL (0.6-1.0); EST CRCL DRUG DOSING (CG) 35.59 mL/min; POTASSIUM,K 3.3 mmol/L (3.6-5.2)
[2024-09-08 05:15] LABS: ANION GAP 15.3 mmol/L (5.0-14.0)
[2024-09-08] MEDS: LORazepam ORAL Concentrate 1MG/0.5ML U/D SL PRN (07:35)
[2024-09-08] MEDS ORDERED: LORazepam ORAL Concentrate 1MG/0.5ML U/D SL PRN (09:05)
[2024-09-08] MEDS: cefTAZidime Pentahydrate 2 GM in Sodium Chloride 0.9% 50 ML IV SCH (09:08)
[2024-09-08] MEDS: Potassium Chloride 10 MEQ in Premix Bag 1 BAG IV SCH (10:07)
[2024-09-09] MEDS: Scopalamine 1mg/3day Transdermal Patch TRDERM PRN (01:30)
[2024-09-09] MEDS ORDERED: Atropine Sulfate 1% Ophth 2 ML Drops SL PRN (10:36)
== END 2024-09-09 14:00 | disposition expired | DRG 193 ==
LOC: JP.ED 14:51 → JP.MS 17:17
PROVIDERS: ADMIT Hospitalist; ATTEND Internal Medicine
DX: J18.9 Pneumonia, unspecified organism (principal); J96.01 Acute respiratory failure with hypoxia; F05 Delirium due to known physiological condition; G93.49 Other encephalopathy; F02.C11 Dementia in other diseases classified elsewhere, severe, with agitation; E87.6 Hypokalemia; Z66 Do not resuscitate; Z51.5 Encounter for palliative care; I10 Essential (primary) hypertension; G30.1 Alzheimer's disease with late onset; M19.90 Unspecified osteoarthritis, unspecified site; G89.29 Other chronic pain; E78.00 Pure hypercholesterolemia, unspecified; M54.9 Dorsalgia, unspecified; K21.9 Gastro-esophageal reflux disease without esophagitis; M25.561 Pain in right knee; N18.32 Chronic kidney disease, stage 3b; E83.42 Hypomagnesemia; J45.909 Unspecified asthma, uncomplicated; Z88.5 Allergy status to narcotic agent; Z88.0 Allergy status to penicillin; Z79.899 Other long term (current) drug therapy; Z90.710 Acquired absence of both cervix and uterus; Z98.890 Other specified postprocedural states
CPT/HCPCS: 0241U; 36415; 70450; 71045; 80048; 80053; 81001; 83605; 83735; 84145; 85025; 85027; 86140; 87040; 93010; 94640; 96374; 99223; 99233; 99238; 99285; A9270-GY; J0696; J0713; J1200; J1630; J1650; J1956; J3010; J3475; J3480; J3490; J7030; J7040